=== PATIENT | female | born 1985 | race Hispanic/Latino ===

== ENCOUNTER 2017-09-02 11:35 | Emergency (ER) | payer SELFPAY ==
[2017-09-02 12:10] LABS: #Basophils 0.1 thou/uL (0.0-0.2); #Eosinphils 0.2 thou/uL (0.0-0.7); #Lymphocytes 2.9 thou/uL (1.20-3.40); #Monocytes 0.6 thou/uL (0.11-0.59); %Basophils 1.1 % (0.0-1.0); %Eosinophils 2.5 % (0.0-10.0); %Lymphocytes 37.2 % (21.0-51.0); %Monocytes 7.1 % (0.0-10.0); Hematocrit 38.3 % (36.0-47.0); Red Blood Cell (RBC) Count 4.58 mill/uL (4.20-5.40); White Blood Cell (WBC) Count 7.8 thou/uL (4.8-10.8)
[2017-09-02] MEDS ORDERED: Ketorolac Tromethamine 30 MG/ML VIAL ONE (12:22)
[2017-09-02 12:35] LABS: ALT (SGPT) 39 U/L (8-55); AST (SGOT) 28 U/L (5-34); Alkaline Phosphatase 123 U/L (40-150); Anion Gap 13 mmol/L (10-20); BUN (Urea Nitrogen) 9 mg/dL (7.0-18.7); Bilirubin, Total 0.4 mg/dL (0.2-1.2); Calc. Creatinine Clearance 0 mL/min (70-130); Carbon Dioxide 22 mmol/L (22-29); Chloride 105 mmol/L (98-107); Estimated GFR-MDRD Greater than 90; Globulin 3.8 g/dL (2.4-3.5); Lipase 20 U/L (8-78); Protein, Total 8.1 g/dL (6.0-8.3)
[2017-09-02 12:39] LABS: Bilirubin Negative (Negative); Blood, Urine Negative (Negative); Glucose, Urine (Dipstick) Negative (Negative); Ketone, Urine Negative (Negative); Nitrite Negative (Negative); Protein, Urine (Dipstick) Negative (Neg-Trace)
[2017-09-02 12:42] LABS: Bacteria/HPF 2+ HPF (None Seen); Hyaline Casts/LPF 0-3 HYALINE CAST LPF (0-3 Hyaline); Squamous Epithelial 0-3 HPF (0-3)
[2017-09-02 13:05] LABS: RBC/HPF 0-3 HPF (0-3)
[2017-09-02] MEDS ORDERED: cefTRIAXone\\ROCEPHIN 2 GM VIAL ONE (13:51)
[2017-09-02] MEDS ORDERED: Sodium Chloride 0.9% 0 ML ONE (13:52)
== END 2017-09-02 14:40 | disposition home or self-care (01) ==
LOC: ERS 11:35
DX: N12 Tubulo-interstitial nephritis, not specified as acute or chronic (principal); G43.909 Migraine, unspecified, not intractable, without status migrainosus; I10 Essential (primary) hypertension; Z87.891 Personal history of nicotine dependence
CPT/HCPCS: 36415; 80053; 81003; 81015; 81025; 83690; 85025; 87077; 87086; 87186; 96361; 96365; 96375; J0696; J1885; J7050

== ENCOUNTER 2017-09-19 19:45 | Emergency (ER) | payer SELFPAY ==
[2017-09-19] MEDS ORDERED: Ondansetron HCl/PF 4 MG/2 ML Vial ONE (20:14)
[2017-09-19] MEDS ORDERED: Morphine 10 MG/ML VIAL ONE (20:14)
[2017-09-19 20:20] LABS: Bilirubin Negative (Negative); Blood, Urine Negative (Negative); Glucose, Urine (Dipstick) Negative (Negative); Ketone, Urine Trace mg/dL (Negative); Nitrite Negative (Negative); Protein, Urine (Dipstick) Negative (Neg-Trace)
[2017-09-19 20:21] LABS: Bacteria/HPF Rare-Few HPF (None Seen); Hyaline Casts/LPF 0-3 HYALINE CAST LPF (0-3 Hyaline); RBC/HPF 0-3 HPF (0-3)
[2017-09-19 20:34] LABS: Yeast-All Forms None Seen HPF (None Seen)
[2017-09-19 20:36] LABS: #Basophils 0.1 thou/uL (0.0-0.2); #Eosinphils 0.2 thou/uL (0.0-0.7); #Lymphocytes 3.2 thou/uL (1.20-3.40); #Monocytes 0.8 thou/uL (0.11-0.59); %Basophils 1.1 % (0.0-1.0); %Lymphocytes 38.2 % (21.0-51.0); %Monocytes 9.2 % (0.0-10.0); Hematocrit 36.2 % (36.0-47.0); Mean Platelet Volume 6.8 fL (7.4-10.4); Red Blood Cell (RBC) Count 4.26 mill/uL (4.20-5.40); White Blood Cell (WBC) Count 8.3 thou/uL (4.8-10.8)
[2017-09-19 20:58] LABS: ALT (SGPT) 36 U/L (8-55); AST (SGOT) 24 U/L (5-34); Alkaline Phosphatase 104 U/L (40-150); Anion Gap 16 mmol/L (10-20); BUN (Urea Nitrogen) 11 mg/dL (7.0-18.7); Bilirubin, Total 0.3 mg/dL (0.2-1.2); Calc. Creatinine Clearance 0 mL/min (70-130); Calcium 9.5 mg/dL (7.8-10.44); Carbon Dioxide 21 mmol/L (22-29); Chloride 104 mmol/L (98-107); Estimated GFR-MDRD Greater than 90; Globulin 3.5 g/dL (2.4-3.5); Protein, Total 7.8 g/dL (6.0-8.3)
--- NOTE | 2017-09-19 21:49 | CT ---
EXAM: ABDOMEN CT WITHOUT CONTRAST PELVIC CT WITHOUT CONTRAST 09/19/17 COMPARISON: None. HISTORY: Abdominal pain. Left flank pain. TECHNIQUE: An abdomen and pelvic CT are performed without contrast. Coronal reformatted images are submitted fo r interpretation. FINDINGS: ABDOMEN CT: The lung bases are clear. Heart size is normal. No significant pericardial fluid. The visualized aor ta has a normal caliber. No periaortic fat stranding. No gastrohepatic, retrocrural or periportal lymphadenopathy. Small umbilical hernia containing mesenteric fat is noted. No evidence of bowel herniation. No mesen teric mass, lymphadenopathy, free air or free fluid. Limited evaluation of the solid organs due to l ack of IV contrast. Grossly, no solid organ abnormality. Gallbladder is unremarkable. There are punctate nonobstructing 1 to 2 mm calculi in the left and right renal pelvis. Bilaterally, no hydronephrosis or perinephric fat stranding. Bilateral ureters have a normal caliber. No hydrour eter, periureteral fat stranding or ureterolithiasis. Limited evaluation of the alimentary canal due to lack of oral contrast. No evidence of bowel obstru ction. Ileocecal junction is normal. Normal caliber appendix. Fecal material in a nondistended, nond ilated colon. PELVIC CT: Uterus and adnexal structures are unremarkable. No pelvic mass, lymphadenopathy, free air. Trace dmitry unt of free fluid in the pelvis is noted. Urinary bladder is unremarkable. There are no calcificatio ns. There are no lytic or blastic lesions in the osseous structures. Pseudarthrosis of the left L5 ala w ith the sacrum. IMPRESSION: 1. Bilateral nonobstructing intrarenal calculi. 2. Bilaterally, no obstructive uropathy. 3. Normal caliber appendix. POS: [facility]
== END 2017-09-19 22:10 | disposition home or self-care (01) ==
LOC: ERS 19:45
DX: N20.0 Calculus of kidney (principal); N39.0 Urinary tract infection, site not specified; I10 Essential (primary) hypertension; G43.909 Migraine, unspecified, not intractable, without status migrainosus; Z87.891 Personal history of nicotine dependence; Z79.899 Other long term (current) drug therapy
CPT/HCPCS: 74176; 80053; 81003; 81015; 85025; 87086; 96361; 96374; 96375; J2270; J2405

== ENCOUNTER 2018-07-21 08:21 | Emergency (ER) | payer SELFPAY ==
[2018-07-21 11:58] LABS: Pregnancy Test - Urine (BHCG) POSITIVE (Negative); Pregu Control Background? CLEAR/WHITE (CLR/WHITE); Pregu Control Bar Appear? YES (CONTROL BAR); Specific Gravity 1.024 (1.002-1.036)
[2018-07-21 12:00] LABS: Bacteria/HPF 4+ HPF (None Seen); Bilirubin Negative (Negative); Blood, Urine Negative (Negative); Clarity CLOUDY (Clear); Glucose, Urine (Dipstick) Negative (Negative); Leukocyte Large (Negative); Nitrite Positive (Negative); Pathc Cast-AUWi Flag 1.88 (0-2.49); Protein, Urine (Dipstick) Trace mg/dL (Neg-Trace); Specific Gravity, Urine 1.024 (1.002-1.036)
[2018-07-21 12:04] LABS: RBC/HPF 0-3 HPF (0-3); Squamous Epithelial 0-3 HPF (0-3)
[2018-07-21 12:05] LABS: Hyaline Casts/LPF NONE SEEN LPF (0-3 Hyaline)
[2018-07-21 12:15] LABS: ALT (SGPT) 16 U/L (8-55); AST (SGOT) 14 U/L (5-34); Albumin 4.2 g/dL (3.5-5.0); Alkaline Phosphatase 101 U/L (40-150); Anion Gap 11 mmol/L (10-20); BUN (Urea Nitrogen) 6 mg/dL (7.0-18.7); Bilirubin, Total 0.4 mg/dL (0.2-1.2); Calc. Creatinine Clearance 0 mL/min (70-130); Calcium 9.2 mg/dL (7.8-10.44); Carbon Dioxide 23 mmol/L (22-29); Chloride 104 mmol/L (98-107); Estimated GFR-MDRD Greater than 90; Globulin 3.4 g/dL (2.4-3.5); Glucose 89 mg/dL (70-105); Potassium 3.7 mmol/L (3.5-5.1); Protein, Total 7.6 g/dL (6.0-8.3); Sodium 134 mmol/L (136-145)
[2018-07-21 12:19] LABS: Hemoglobin 11.2 g/dL (12.0-16.0); Mean Corpuscular HGB CONC 33.4 g/dL (32.0-36.0); Mean Corpuscular Hemoglobin 26.9 pg (27.0-31.0); Mean Corpuscular Volume 80.6 fL (78.0-98.0); Platelet Count 525 thou/uL (130-400); Red Blood Cell (RBC) Count 4.18 mill/uL (4.20-5.40); White Blood Cell (WBC) Count 9.1 thou/uL (4.8-10.8)
[2018-07-21 12:20] LABS: Mean Platelet Volume 7.2 fL (7.4-10.4)
[2018-07-21 12:23] LABS: #Basophils 0.1 thou/uL (0.0-0.2); #Eosinphils 0.1 thou/uL (0.0-0.7); #Lymphocytes 2.3 thou/uL (1.20-3.40); #Monocytes 0.7 thou/uL (0.11-0.59); #Neutrophils 5.8 thou/uL (1.40-6.50); %Basophils 0.9 % (0.0-1.0); %Eosinophils 1.5 % (0.0-10.0); %Lymphocytes 25.6 % (21.0-51.0); %Monocytes 7.9 % (0.0-10.0); %Neutrophils 64.2 % (42.0-75.0)
[2018-07-21 12:30] LABS: BHCG - Serum POSITIVE (NEGATIVE); Pregs Control Background? CLEAR/WHITE (CLR/WHITE); Pregs Control Bar Appear? YES (CONTROL BAR)
--- NOTE | 2018-07-21 12:54 | ULT ---
TRANSABDOMINAL AND TRANSVAGINAL PELVIC ULTRASOUND WITH DOPPLER: Date: 07-21-18 Provided Clinical History: Pelvic pain. FINDINGS: The uterus measures about 11.2 x 8.1 x 8.5 cm and demonstrates a single intrauterine gestation, 9 wee ks 3 days by crown rump length. heart tones of 175 beats/minute documented. No evidence for par a gestational hemorrhage. The right and left ovaries appear sonographically unremarkable. Color doppl er and spectral analysis of the ovarian waveforms demonstrates flow bilaterally. There is no evidence for free pelvic fluid. IMPRESSION: Single live intrauterine gestation. POS: [facility]
[2018-07-24 00:25] LABS: Chlamydia by PCR Not Detected (NotDetected); GC by PCR Not Detected (NotDetected)
== END 2018-07-21 12:46 | disposition home or self-care (01) ==
LOC: ERS 08:21
DX: O23.11 Infections of bladder in pregnancy, first trimester (principal); N30.00 Acute cystitis without hematuria; I10 Essential (primary) hypertension; Z87.891 Personal history of nicotine dependence; Z3A.09 9 weeks gestation of pregnancy
CPT/HCPCS: 76856; 80053; 81003; 81015; 81025; 84702; 84703; 85025; 86900; 86901; 87077; 87086; 87186; 87480; 87491; 87510; 87591; 87660

== ENCOUNTER 2019-02-11 06:21 | Inpatient (IN) | payer SELFPAY ==
[2019-02-11] MEDS ORDERED: Butorphanol Tartrate 1 MG/ML VIAL SLOW IVP PRN (06:46)
[2019-02-11] MEDS ORDERED: Ondansetron PF 4 MG/2 ML Vial IVP PRN ×2 (06:46→07:25)
[2019-02-11] MEDS ORDERED: Lidocaine 1% (PF) 30 ML VIAL SC PRN (06:46)
[2019-02-11] MEDS ORDERED: Carboprost 250 MCG/ML AMP IM PRN (06:46)
[2019-02-11] MEDS ORDERED: Ibuprofen 800 MG TAB PO PRN (06:46)
[2019-02-11] MEDS ORDERED: Acetaminophen 500 MG TAB PO PRN (06:46)
[2019-02-11] MEDS ORDERED: Misoprostol 200 MCG TAB PR PRN (06:46)
[2019-02-11] MEDS ORDERED: Methylergonovine 0.2 MG/ML VIAL IM PRN ×2 (06:46→07:25)
[2019-02-11] MEDS ORDERED: HYDROcodone/Acetaminophen 5/325 mg Tablet PO PRN ×4 (06:46→07:25)
[2019-02-11] MEDS ORDERED: Promethazine HCl 25 MG/ML VIAL IM PRN ×2 (06:46→07:25)
[2019-02-11] MEDS ORDERED: NS / Oxytocin 40 units/1000ml 1,000 ML IV PRN (06:46)
[2019-02-11] MEDS ORDERED: Diphenoxylate HCl/Atropine Tablet PO PRN ×2 (06:46)
--- NOTE | 2019-02-11 06:50 | PDOC.LDHP ---
Labor and Delivery H&P Chief complaint: contractions HPI: 33 y/o at 37w6d presents for ctx. Was supposed to deliver with a sport psychologist in [place], no records present. Denies VB, LOF, or decreased FM. ROS neg for HEENT, CV, pulm, GI, , neuro, psych, skin, musculoskeletal, or constitutional symptoms other than mentioned above. OB History Details: 4 prior term SVDs Current complications: none Past Medical History: None Current medications: pre-bakari vitamins Previous surgical history: none Allergies/Adverse Reactions: Allergies Allergy/AdvReac Type Severity Reaction Status Date / Time No Known Allergies Allergy Verified 02/11/19 06:59 Social history: none - Physical Exam Vital signs reviewed and normal: yes General: NAD, breathing through contractions Lungs: nonlabored breathing Abdomen: gravid Extremeties: no edema FHT: category 1 (140s, mod variability, + accels, early decels) [place] contractions every: 2 mins - Vaginal Exam cm dilated: 6 Effacement: 100% Station: -1 - Assessment L&D Assessment: term patient in labor - Plan Plan: admit to L&D, labor augmentation if indicated, informed consent obtained, anesthesia consult for pain management (if desired)
[2019-02-11] MEDS ORDERED: Lactated Ringer's 1,000 ML IV SCH (07:00)
[2019-02-11 07:02] VITALS: BMI 37.0
[2019-02-11] MEDS ORDERED: NS / Oxytocin 40 units/1000ml 1,000 ML ONE (07:08)
[2019-02-11] MEDS ORDERED: Lidocaine 1% (PF) 30 ML VIAL ONE (07:08)
[2019-02-11 07:19] LABS: Hemoglobin 9.3 g/dL (12.0-16.0); Mean Corpuscular Hemoglobin 23.5 pg (27.0-31.0); Mean Corpuscular Volume 73.3 fL (78.0-98.0); Mean Platelet Volume 6.7 fL (7.4-10.4); Platelet Count 438 thou/uL (130-400); RBC Distribution Width 14.8 % (11.5-14.5); Red Blood Cell (RBC) Count 3.97 mill/uL (4.20-5.40)
[2019-02-11] MEDS ORDERED: Misoprostol 200 MCG TAB VAG PRN (07:25)
[2019-02-11] MEDS ORDERED: Benzocaine-Menthol 82.5 ML CAN TOP PRN (07:25)
[2019-02-11] MEDS ORDERED: Bisacodyl 10 MG SUPP PR PRN (07:25)
[2019-02-11] MEDS ORDERED: Zolpidem Tartrate 5 MG TAB PO PRN (07:25)
[2019-02-11] MEDS ORDERED: Preparation H Ointment 28 GM TUBE PR PRN (07:25)
[2019-02-11] MEDS ORDERED: Milk Of Magnesia 30 ML UDCUP PO PRN (07:25)
[2019-02-11] MEDS ORDERED: Lanolin Ointment 7 GM TUBE TOP PRN (07:25)
[2019-02-11] MEDS ORDERED: Adacel (T-DAP) 0.5 ML SYRINGE IM ONE (07:25)
[2019-02-11] MEDS ORDERED: Measles/Mumps/Rubella 10 MCG/0.5 ML VIAL SC ONE (07:25)
[2019-02-11] MEDS ORDERED: Varicella virus, LIVE 0.5 ML VIAL SC ONE (07:25)
[2019-02-11] MEDS ORDERED: NS / Oxytocin 40 units/1000ml 1,000 ML IV SCH (07:30)
--- NOTE | 2019-02-11 07:34 | PDOC.OPDEL ---
OB Operative/Delivery Note Delivery Dr/Surgeon: Rupali Dent MD Pre-Delivery Diagnosis: active labor Procedure/Post Delivery Dx: spontaneous vaginal delivery Weeks gestation: 37 Anesthesia: none - Findings A Sex: male Weight: 6 lb 3.12 oz - 1 min: 8 - 5 min: 9 - Additional Findings/Plan Placenta delivered: spontaneous Repaired Obstetrical Laceration: none Estimated blood loss: 105 Post delivery plan: routine recovery
[2019-02-11 07:49] LABS: Syphilis Antibody Nonreactive (Nonreactive); Syphilis Antibody Index 0.06 S/CO (<1.00 Non-Reactive)
[2019-02-11 07:50] LABS: HBSAg Index 0.41 S/CO (0-0.99); HIV (1/2) Antibody/Antigen Non-Reactive (NonReactive); HIV 1/2 INDEX 0.09 S/CO (<1.00); Hep B Surf Ag Non-Reactive S/CO (NonReactive)
[2019-02-11] MEDS: Docusate Calcium (SURFAK) 240 MG CAP PO SCH ×2 (11:24→22:16)
[2019-02-11] MEDS: Ferrous Sulfate 325 MG TAB PO SCH ×2 (11:24→16:06)
[2019-02-11] MEDS: Prenatal Vitamin 1 TAB PO SCH (11:25)
[2019-02-11] MEDS: Ibuprofen 800 MG TAB PO SCH ×2 (14:01→22:16)
[2019-02-12] MEDS: Ibuprofen 800 MG TAB PO SCH ×3 (07:03→21:46)
[2019-02-12] MEDS: Prenatal Vitamin 1 TAB PO SCH (08:40)
[2019-02-12] MEDS: Ferrous Sulfate 325 MG TAB PO SCH ×2 (08:40→17:20)
[2019-02-12] MEDS: Docusate Calcium (SURFAK) 240 MG CAP PO SCH ×2 (08:40→21:46)
[2019-02-12 08:51] LABS: Hemoglobin 8.5 g/dL (12.0-16.0); Mean Corpuscular HGB CONC 32.1 g/dL (32.0-36.0); Mean Corpuscular Hemoglobin 23.9 pg (27.0-31.0); Mean Corpuscular Volume 74.6 fL (78.0-98.0); Mean Platelet Volume 6.7 fL (7.4-10.4); Platelet Count 392 thou/uL (130-400); RBC Distribution Width 14.9 % (11.5-14.5); Red Blood Cell (RBC) Count 3.54 mill/uL (4.20-5.40); White Blood Cell (WBC) Count 13.7 thou/uL (4.8-10.8)
--- NOTE | 2019-02-12 21:34 | DIS ---
DATE OF ADMISSION: 02/11/2019 DATE OF DISCHARGE: 02/12/2019 PRIMARY OB: Ms. Zeenat Martin out in [place] [employer]. DIAGNOSIS: Labor at term. DISCHARGE DIAGNOSIS: Labor at term. PROCEDURE: Term spontaneous vaginal delivery. CONSULTATIONS: None. HOSPITAL COURSE: The patient is a 33-year-old, G5, now P5 female who presented to Labor and Delivery at 37 weeks and 6 days in active labor and subsequently delivered by uncomplicated term spontaneous vaginal delivery. Her course has been uncomplicated. She is now day #1. She reports this morning that she has decreased bleeding. She is tolerating p.o., voiding on her own, having good pain control and has expressed interest in discharge home. PHYSICAL EXAMINATION: VITAL SIGNS: The patient's blood pressure this morning is 132/78, temperature 98.0, pulse of 80, respiratory rate 17. GENERAL: She appears to be in no acute distress. She is alert, oriented, cooperative, and pleasant to interact with. HEAD: Normocephalic atraumatic. : Fundus is firm. EXTREMITIES: Nontender, nonedematous. LABORATORY DATA: Post delivery, her pre-delivery hemoglobin is 9.3, hematocrit 29.1, platelets 438,000. DISCHARGE INSTRUCTIONS: The patient is being discharged to home. Her home medications will include ibuprofen for pain. The patient has instructions to follow up with her primary OB in [place] in the next 1-2 weeks. She has been given instructions to seek medical attention sooner if she experiences fever, increasing pain, or bleeding. Given the patient's anemia at onset of labor, I will be repeating a CBC this morning prior to discharge for evaluation. Dr. Dent will be the oncoming physician to review it. Job ID: [id number]
[2019-02-13] MEDS: Ibuprofen 800 MG TAB PO SCH (05:04)
[2019-02-13 08:19] VITALS: BP 111/67; TEMP 97.5
[2019-02-13] MEDS: Prenatal Vitamin 1 TAB PO SCH (09:11)
[2019-02-13] MEDS: Docusate Calcium (SURFAK) 240 MG CAP PO SCH (09:11)
[2019-02-13] MEDS: Ferrous Sulfate 325 MG TAB PO SCH (09:12)
== END 2019-02-13 11:25 | disposition home or self-care (01) | DRG 807 ==
LOC: L&D/OP 06:21 → L&D 06:44 → 3SW 11:14
PROVIDERS: ADMIT Obstetrics & Gynecology; ATTEND Obstetrics & Gynecology
PROC: 10E0XZZ Delivery of Products of Conception, External Approach (ICD-10-PCS; principal; 2019-02-11)
DX: O99.02 Anemia complicating childbirth (principal); Z37.0 Single live birth; D64.9 Anemia, unspecified; Z3A.37 37 weeks gestation of pregnancy
CPT/HCPCS: 36415; 85027; 86780; 86850; 86900; 86901; 87340; 87389; 90715; 99285; J2001

== ENCOUNTER 2019-12-30 08:23 | Emergency (ER) | payer OTHER, SELFPAY ==
[2019-12-30 09:44] LABS: Bilirubin Negative (Negative); Blood, Urine Negative (Negative); Clarity Clear (Clear); Glucose, Urine (Dipstick) Normal (Negative); Leukocyte 25 Leu/uL (Negative); Nitrite Negative (Negative); Protein, Urine (Dipstick) Negative (Neg-Trace); RBC/HPF 0-3 HPF (0-3); Urobilinogen Normal mg/dL (Less than 2); WBC/HPF 0-3 HPF (0-3)
[2019-12-30 09:45] LABS: Pregnancy Test - Urine (BHCG) Negative (Negative); Pregu Control Background? CLEAR/WHITE (CLR/WHITE); Pregu Control Bar Appear? YES (CONTROL BAR); Specific Gravity 1.004 (1.002-1.036)
[2019-12-30 09:54] LABS: Bacteria/HPF 3+ HPF (None Seen)
== END 2019-12-30 10:36 | disposition home or self-care (01) ==
LOC: ERS 08:23
DX: N39.0 Urinary tract infection, site not specified (principal); I10 Essential (primary) hypertension; G43.909 Migraine, unspecified, not intractable, without status migrainosus; Z87.891 Personal history of nicotine dependence
CPT/HCPCS: 81003; 81015; 81025; 87077; 87086; 87186; 99284

== ENCOUNTER 2021-05-05 16:26 | Emergency (ER) | payer SELFPAY | END 2021-05-05 19:02 | disposition home or self-care (01) | LOC: ERS 16:26 | DX: S81.812A Laceration without foreign body, left lower leg, initial encounter (principal); G43.909 Migraine, unspecified, not intractable, without status migrainosus; I10 Essential (primary) hypertension; Z87.891 Personal history of nicotine dependence; W45.8XXA Other foreign body or object entering through skin, initial encounter | CPT/HCPCS: 12001 ==

== ENCOUNTER 2025-06-21 16:29 | Emergency (ER) | payer SELFPAY ==
[~2025-06-21 16:29] MED LIST: Iopamidol-370 76% 500 ML MDV (1 ML CHARGE) ONE
[2025-06-21 17:29] LABS: #Basophils 0.04 10x3/uL (0.0-0.2); #Eosinophils 0.07 10x3/uL (0.0-0.7); #Monocytes 0.45 10x3/uL (0.11-0.59); #Neutrophils 4.15 10x3/uL (1.40-6.50); %Basophils 0.6 % (0.0-1.0); %Eosinophils 1.1 % (0.0-10.0); %Lymphocytes 25.4 % (21.0-51.0); %Monocytes 7.1 % (0.0-10.0); %Neutrophils 65.5 % (42.0-75.0); Hematocrit 36.2 % (36.0-47.0); Hemoglobin 11.7 g/dL (12.0-16.0); Mean Corpuscular Hemoglobin 26.5 pg (27.0-31.0); Mean Corpuscular Volume 81.9 fL (78.0-98.0); Platelet Count 443 10x3/uL (130-400); Red Blood Cell (RBC) Count 4.42 mill/uL (4.20-5.40); White Blood Cell (WBC) Count 6.34 10x3/uL (4.8-10.8)
[2025-06-21 17:36] LABS: Pregnancy Test - Urine (BHCG) Negative (Negative); Pregu Control Background? CLEAR/WHITE (CLR/WHITE); Pregu Control Bar Appear? YES (CONTROL BAR)
[2025-06-21 17:41] LABS: Bacteria/HPF None Seen HPF (None Seen); CAUTI Indications for Culture Dysuria,urgency,freq; Glucose, Urine (Dipstick) Normal (Negative); Leukocyte Negative Leu/uL (Negative); Protein, Urine (Dipstick) Negative (Neg-Trace); RBC/HPF 0-3 HPF (0-3); Specific Gravity, Urine 1.010 (1.002-1.036); WBC/HPF 0-3 HPF (0-3)
[2025-06-21 17:43] LABS: Urine Culture Reflex No No
[2025-06-21 17:46] LABS: ALT (SGPT) 57 U/L (Less than 34); AST (SGOT) 33 U/L (11-34); Albumin 4.3 g/dL (3.1-4.5); Alkaline Phosphatase 113 U/L (40-110); Anion Gap 12 mmol/L (10-20); BUN (Urea Nitrogen) 7 mg/dL (7.0-18.7); Bilirubin, Total 0.5 mg/dL (0.3-1.2); Calc. Creatinine Clearance 0 mL/min (70-130); Calcium 9.1 mg/dL (7.8-10.44); Carbon Dioxide 24 mmol/L (22-29); Chloride 106 mmol/L (98-107); Globulin 3.4 g/dL (2.4-3.5); Glucose 143 mg/dL (70-105); Lipase 14 U/L (8-78); Potassium 3.5 mmol/L (3.5-5.1); Sodium 138 mmol/L (136-145)
[2025-06-21] MEDS ORDERED: Ketorolac Tromethamine 30 MG (1 mL) VIAL ONE (17:52)
[2025-06-21] MEDS ORDERED: Acetaminophen 500 MG TAB ONE (17:52)
== END 2025-06-21 19:19 | disposition home or self-care (01) ==
LOC: ERS 16:29
DX: M54.50 Low back pain, unspecified (principal); R94.5 Abnormal results of liver function studies; Z87.891 Personal history of nicotine dependence
CPT/HCPCS: 36415; 74177; 80053; 81001; 81025; 83605; 83690; 84484; 85025; 87040; 87086; 93005; 96374; J1885